=== PATIENT | female | born 1955 | race Caucasian/White ===

== ENCOUNTER 2017-06-29 08:40 | Day surgery (SDC) | payer OTHER ==
[~2017-06-29] VITALS: Ht 157.5 cm; Wt 68.0 kg
[~2017-06-29 08:40] MED LIST: ALLOPURINOL100 MG PO; BENZTROPINE0.5 MG PO; DIVALPROEX SOD250 MG PO; DULCOLAX SS100 MG PO; GLIPIZIDE ER5 MG PO; HYDROCHLOROT25 MG PO; LASIX 40 MG40 MG/TAB PO; LEVOTHYROXIN50 MCG PO; LOPRESSOR25 M1 PO; MIRTAZAPINE15 MG PO; MITIGARE0.6 MG PO; RISPERIDONE2 MG PO; TRILEPTAL150 MG PO; VITAMIN D2000 UNI1 PO
[2017-06-29 11:42] VITALS: BP 119/76
== END 2017-06-29 11:15 | disposition short-term general hospital (02) | DRG 951 ==
LOC: ENDO 08:40
PROVIDERS: ATTEND Surgery
PROC: 0DJD8ZZ Inspection of Lower Intestinal Tract, Via Natural or Artificial Opening Endoscopic (ICD-10-PCS; principal; 2017-06-29)
DX: Z12.11 Encounter for screening for malignant neoplasm of colon (principal)

== ENCOUNTER 2017-07-13 07:55 | Day surgery (SDC) | payer OTHER ==
[~2017-07-13] VITALS: Ht 157.5 cm; Wt 68.0 kg
[2017-07-13 11:03] VITALS: BP 90/51
== END 2017-07-13 10:45 | disposition short-term general hospital (02) | DRG 951 ==
LOC: ENDO 07:55
PROVIDERS: ATTEND Surgery
PROC: 0DBK8ZX Excision of Ascending Colon, Via Natural or Artificial Opening Endoscopic, Diagnostic (ICD-10-PCS; principal; 2017-07-13)
PROC: 0DBM8ZX Excision of Descending Colon, Via Natural or Artificial Opening Endoscopic, Diagnostic (ICD-10-PCS; 2017-07-13)
DX: Z12.11 Encounter for screening for malignant neoplasm of colon (principal); K63.5 Polyp of colon; K50.10 Crohn's disease of large intestine without complications

== ENCOUNTER 2017-07-27 11:40 | Emergency (ER) | payer OTHER | END 2017-07-27 11:56 | disposition left against medical advice (07) | DRG 951 | LOC: ED 11:40 → LWOBS 11:56 | DX: Z91.19 Patient's noncompliance with other medical treatment and regimen (principal) ==

== ENCOUNTER → 2018-08-05 | Outpatient (REF) | payer OTHER ==
[2018-08-05 09:41] LABS: HEMATOCRIT 39.9 % (37.0-47.0); HEMOGLOBIN 12.5 g/dl (12.0-16.0); IMMATURE GRANULOCYTES 0.4 % (0.0-5.0); MEAN CELL VOLUME 93.7 fL CALC (80.0-100.0); MEAN CORPUSCULAR HGB 29.3 pG CALC (26.0-32.0); MEAN CORPUSCULAR HGB CONC 31.3 g/L CALC (32.0-36.0); NEUT# 4.36 thou/uL (2.00-7.15); RED BLOOD COUNT 4.26 mill/uL (4.20-5.60); RED CELL DISTRI WIDTH 14.2 % (11.5-15.5)
[2018-08-05 09:42] LABS: URINE BILIRUBIN - DIPSTICK NEGATIVE (NEGATIVE); URINE BLOOD DIPSTICK NEGATIVE (NEGATIVE); URINE COLOR YELLOW; URINE GLUCOSE - DIPSTICK NEGATIVE (NEGATIVE); URINE KETONE NEGATIVE (NEGATIVE); URINE LEUK ESTERASE MODERATE (Negative); URINE NITRITE - DIPSTICK NEGATIVE (Negative); URINE PH 6.5 (4.5-8.0); URINE PROTEIN - DIPSTICK NEGATIVE (NEG-TRACE); URINE SPECIFIC GRAVITY <=1.005; URINE UROBILINOGEN - DIPSTICK 0.2 E.U./dL (0.2)
[2018-08-05 09:44] LABS: URINE CLARITY CLEAR
[2018-08-05 09:55] LABS: ALBUMIN 4.1 g/dL (3.2-5.0); CREATININE 2.2 mg/dL (0.5-1.0)
[2018-08-05 09:56] LABS: URINE BACTERIA RARE hpf; URINE SQUAMOUS EPITHELIAL CELL FEW EPI/hpf (0-FEW)
== END | disposition home or self-care (01) ==
LOC: LAB 08:31
PROVIDERS: ATTEND Internal Medicine Nephrology
DX: N18.4 Chronic kidney disease, stage 4 (severe) (principal); D63.1 Anemia in chronic kidney disease; N25.81 Secondary hyperparathyroidism of renal origin